=== PATIENT | male | born 1995 | race Caucasian/White ===

== ENCOUNTER 2017-01-06 04:03 | Emergency (ER) | payer BC, OTHER ==
[~2017-01-06] VITALS: Ht 185.4 cm; Wt 97.9 kg
[2017-01-06 04:07] VITALS: TEMP 36.7; Ht 185.4 cm; Wt 97.9 kg
--- NOTE | 2017-01-06 05:28 | EMERGENCY ROOM VISIT NOTE ---
ED Visit Note First contact with patient: 04:11 CHIEF COMPLAINT: Hand injury HISTORY OF PRESENT ILLNESS: This 21-year-old male patient presented to the emergency department ambulatory after they injured the right hand earlier this evening. The patient states that he hit a wall with the palm of his hand. He reports pain in the area of the thumb. The patient rates the pain as dull and 6 /10. The patient denies any numbness or tingling. The patient does not have injuries to the wrist. The patient has not had a previous fracture to this hand. REVIEW OF SYSTEMS: A 6 system review of systems was completed with positives and pertinent negatives in the HPI. ALLERGIES: No known drug allergies MEDICATIONS: No chronic medications PMH: No significant past medical history SOCIAL HISTORY: The patient is a [employer] student. He is a smoker and admits to alcohol use. PHYSICAL EXAM: Vital Signs: Reviewed Nurse's notes, vital signs stable. GENERAL : This is a 21-year-old male, in no acute distress, but appears to be in pain, well-developed, well-nourished. MUSCULOSKELETAL: There is no deformity of the right hand. There is tenderness to palpation just proximal to the right thumb. There is no thenar or hypothenar eminence atrophy. Normal thumb opposition to all fingers. [employer] Service Technician strength 5/5. There is no laceration. Capillary refill less than 2 seconds. No tenderness of the fingers or wrist. Full range of motion of the wrist. No snuff box tenderness. Radial pulse 2+. NEURO: Alert and oriented to person, place, and time. Normal sensation to light and sharp touch. EMERGENCY DEPARTMENT COURSE: I examined the patient. An x-ray of the right hand was reviewed by myself and my attending and shows no acute fractures. This will be read by radiology in the morning. Conservative measures were discussed with the patient. He verbalized understanding. The patient was discharged home in good condition. DIAGNOSIS: Right hand contusion Current/Historical Medications No Active Prescriptions or Reported Meds Allergies Coded Allergies: No Known Allergies (Unverified , 01/06/17) Vital Signs Date Time Temp Pulse Resp B/P Pulse Ox O2 Delivery O2 Flow Rate FiO2 01/06/17 05:36 78 16 133/71 98 01/06/17 04:07 36.7 103 18 121/75 96 Room Air Departure Information Impression Primary Impression: Contusion of hand, right Dispostion Home / Self-Care Condition GOOD Prescriptions No Active Prescriptions or Reported Meds Referrals No Doctor, Assigned (PCP) Patient Instructions My [facility] Additional Instructions You have been treated in the Emergency Department for Hand Pain. For pain control, you can use the following unbu-mcc-mkyphgn medicines (if >12 yo): - Regular strength (325mg/tab) Tylenol (acetaminophen) 2 tabs every 4-6 hours as needed. Do not exceed 12 tablets in a 24 hour period. Avoid taking more than 4 grams (4000 mg) of Tylenol per day. This includes any other sources of acetaminophen you may take on a regular basis. - Regular strength (200 mg/tab) Advil (ibuprofen) 1-2 tabs every 4-6 hours as needed. Do not exceed a dose of 3200 mg per day. If this is a recent injury (<24 hrs), ice can be applied to the area of pain for the first 3 days to help decrease pain and inflammation. Follow-up with [facility] for your primary care provider if you have persistent pain in 4-5 days. Return to the Emergency Department if your current symptoms worsen despite treatment course outlined above, or if you develop any of the following symptoms : intractable pain despite aforementioned treatment course or new onset of numbness or tingling of the fingers.
[2017-01-06 05:36] VITALS: BP 133/71; PULSE 78; O2SAT 98
--- NOTE | 2017-01-06 08:14 | DIAGNOSTIC IMAGING REPORT ---
RIGHT HAND 3 VIEWS HISTORY: right hand injury Right COMPARISON: None. FINDINGS: There is no fracture or dislocation. Soft tissues are unremarkable. No radiopaque foreign bodies. IMPRESSION: No fractures. Electronically signed by: Elias Ellison M.D. 01/06/2017 8:12 AM Dictated Date/Time: 01/06/2017 8:11 AM
== END 2017-01-06 05:37 | disposition home or self-care (01) ==
LOC: C.EDB 04:06
DX: S60.221A Contusion of right hand, initial encounter (principal); F17.210 Nicotine dependence, cigarettes, uncomplicated; W22.09XA Striking against other stationary object, initial encounter